=== PATIENT | female | born 1985 | race Caucasian/White ===

== ENCOUNTER 2025-02-13 08:42 | Emergency (ER) | payer OTHER, SELFPAY ==
[2025-02-13 08:53] VITALS: BP 138/66; PULSE 83; RESP 20; TEMP 36.6; O2SAT 98
--- NOTE | 2025-02-13 09:25 | W.ED.GENAD ---
Discharge Plan Disposition Patient Disposition: Home Condition: Fair Discharge Details Clinical Impression: , spontaneous threatened Primary Care Provider: Joselin,Local ED Provider: Hesham Nguyen Discharge Instructions Instructions: Threatened Miscarriage (DC) Additional Instructions: At this point in time it is difficult to determine the health of your . Return tomorrow for your ultrasound. You will need to follow-up with your applied technologist when you get home. A repeat hormone level will likely be the most important test. Your applied technologist can contact this hospital for records. Return here if you develop severe bleeding or pain or other worrisome symptoms. Discharge Orders Other Ambulatory Orders: US OB 1st trimester (Routine) Timeframe: 10 Day Facility: [facility] - Location: DIAGNOSTIC IMAGING Ordered By: Hesham Nguyen HPI General Date/Time Provider Initiated Documentation: 02/13/25 08:58. HPI Narrative: Is a 39-year-old female presenting with a chief complaint of vaginal bleeding in the setting of . Patient is G2, P1 currently 8 weeks 5 days. This was complicated by a small amount of spotting early. No other abnormalities. She began spontaneously bleeding again yesterday. She estimates less than 1 pad per hour. She is not having any pain or cramping. No history of any bleeding or bleeding disorders. She has not had any recent injuries or illnesses. No other complaints or concerns at this time. Related Data Allergies Allergy/AdvReac Type Severity Reaction Status Date / Time No Known Allergies Allergy Unverified 02/13/25 08:55 General Stated Complaint: BEHAVIORAL HEALTH SPECIALIST AZAR: 3 Review of Systems All systems reviewed & are unremarkable except as noted in HPI and below Constitutional Constitutional: Reports system reviewed and no additional complaints, except as documented, Denies fever(s), Denies weakness and Denies weight loss Eyes Eyes: Denies blurry vision ENT Ears, Nose, Mouth, and Throat: Denies sore throat Cardiovascular Cardiovascular: Denies chest pain, Denies palpitations and Denies dyspnea Respiratory Respiratory: Denies cough, Denies dyspnea and Denies wheezing Gastrointestinal Gastrointestinal: Denies abdominal pain, Denies diarrhea, Denies nausea and Denies vomiting Genitourinary Genitourinary: Denies hematuria and Denies dysuria Comments: Vaginal bleeding in the setting of Musculoskeletal Musculoskeletal: Denies back pain, Denies arthralgias and Denies numbness Neurologic Neurologic: Denies numbness and Denies weakness Psychiatric Psychiatric: Denies suicidal ideation Endocrine Endocrine: Denies palpitations Allergic/Immunologic Allergic/Immunologic: Denies wheezing Exam Const General: no acute distress and well groomed HENMT Mouth: oral mucosae normal and moist mucous membranes Throat: posterior oropharynx normal Eyes Conjunctivae: conjunctivae normal Sclera: sclerae normal Neck Neck: full ROM and No JVD Resp Effort & Inspection: normal respiratory effort Auscultation: clear to auscultation bilaterally Cardio Rate: regular rate Rhythm: regular rhythm Heart Sounds: no murmurs GI Palpation: soft and nontender Other: Pelvic exam performed with female nurse present. External genitalia are unremarkable. There is dark red blood in the vault. Cervical os is closed. No masses or lesions. Skin General skin exam: no rashes or lesions noted Neuro General: patient alert and patient oriented x3 Extrem General: normal to inspection and full ROM Psych Appearance: grossly normal Mental Status: mental status grossly normal Speech and Movement: speech and movement normal Affect: normal affect Thought Process: normal Course Vital Signs Vital signs: Vital Signs Temperature 36.6 C 02/13/25 08:53 Pulse 83 02/13/25 08:53 Respiratory Rate 20 02/13/25 08:53 Blood Pressure 138/66 02/13/25 08:53 Pulse Oximetry 98 02/13/25 08:53 Temperature 36.6 C 02/13/25 08:53 Temperature Source Oral 02/13/25 08:53 Pulse 83 02/13/25 08:53 Respiratory Rate 20 02/13/25 08:53 Blood Pressure 138/66 02/13/25 08:53 Blood Pressure Position Sitting 02/13/25 08:53 Pulse Oximetry 98 02/13/25 08:53 Oxygen Delivery Method Room Air 02/13/25 08:53 Oxygen Flow Rate 0 02/13/25 08:53 Pain Level 0 02/13/25 09:19 Medical Decision Making This is a 39-year-old female, G2, P1, 8 weeks 5 days presenting with vaginal bleeding. No associated pain. Patient was seen and examined by me. Old charts were reviewed and nursing notes were reviewed. No prior visits in this EMR. hCG is greater than 60,000. Patient is Rh+. Outpatient ultrasound will be ordered for tomorrow. Patient is visiting for the weekend and will head back home the day after tomorrow. I have advised her to contact her applied technologist for follow-up. She is to return if she develops pain or other problems. Lab Data Lab results reviewed: Yes I reviewed the patient's lab results. PFSH All Active Problems (Updated 02/13/25 @ 10:55 by Hesham Nguyen MD) , spontaneous threatened (Acute) Social History Smoking/Tobacco Use Status: Never Smoking risk assessment performed?: Yes Alcohol Intake: never Substance use type: does not use
[2025-02-13 11:13] VITALS: BP 121/59; PULSE 76; RESP 18; O2SAT 99
== END 2025-02-13 11:13 | disposition home or self-care (01) ==
PROVIDERS: Emergency Provider Emergency Medicine
DX: O20.0 Threatened abortion (principal); Z3A.08 8 weeks gestation of pregnancy
CPT/HCPCS: 99283; 99282; 36415; 86900; 86901; 84702